=== PATIENT | female | born 1955 | race African-American/Black ===

== ENCOUNTER 2021-01-18 20:37 | Emergency (ER) | payer MEDICAID, MEDICARE ==
[~2021-01-18] VITALS: Ht 180.3 cm; Wt 71.0 kg
[2021-01-18 22:30] VITALS: BP 191/66
[2021-01-18] MEDS ORDERED: ASPIRIN 81MG TABLET PO ONE (22:45)
[2021-01-18] MEDS ORDERED: NITROGLYCERIN 0.4MG TABLET SL SL PRN (22:45)
[2021-01-18 23:04] LABS: CLARITY URINE CLEAR (CLEAR); COLOR URINE YELLOW (YELLOW); KETONES URINE NEGATIVE (NEGATIVE); LEUKOCYTE ESTERASE URINE NEGATIVE (NEGATIVE); NITRITE URINE NEGATIVE (NEGATIVE); OCCULT BLOOD URINE NEGATIVE (NEGATIVE); PH URINE 7.5 (4.5-8.0); PROTEIN URINE NEGATIVE (NEGATIVE); SPECIFIC GRAVITY URINE 1.009 (1.005-1.030); UROBILINOGEN URINE 0.2 E.U./dL (0.2-1.0)
[2021-01-18 23:07] LABS: BASOPHILS % 0.8 % (0.0-2.0); EOSINOPHILS % 2.7 % (0.0-5.0); HEMOGLOBIN. 14.2 g/dL (12.0-16.0); MEAN CORPUSCULAR HEMOGLOBIN 29.6 pg (28.0-32.0); MEAN CORPUSCULAR VOLUME 87.5 fL (81.0-99.0); MEAN PLATELET VOLUME 9.1 fl (7.4-10.4); MONOCYTES % 7.8 % (2.0-8.0); NEUTROPHILS % 59.7 % (40.0-76.0); PLATELET 222 x1000/uL (130-400); RED CELL DISTRIBUTION WIDTH 14.1 % (11.6-14.6)
[2021-01-18 23:11] LABS: CHLORIDE 101 mEq/L (98-107)
== END 2021-01-18 23:40 | disposition left against medical advice (07) ==
LOC: ER 20:37 → CANBEDREQ 01-19 21:31
DX: R07.89 Other chest pain (principal); R06.09 Other forms of dyspnea; R09.02 Hypoxemia; R74.01 Elevation of levels of liver transaminase levels; I10 Essential (primary) hypertension; Z90.710 Acquired absence of both cervix and uterus
CPT/HCPCS: 36415; 71045; 80053; 81003; 83880; 84484; 85025; 93005; 99283; 99284